=== PATIENT | male | born 1955 | race Two or more races ===

== ENCOUNTER 2023-11-11 03:37 | Inpatient (IN) | payer MEDICARE ==
[~2023-11-11] VITALS: Ht 172.7 cm; Wt 89.1 kg
[~2023-11-11 03:37] MED LIST: ASPI81TA53 PO; ATOR10TA PO; CLOP75TA34 PO; HYDR-3964 PO; LOP25T PO
[2023-11-11] MEDS ORDERED: magnesium sulf-water 4G/100mL 100 ML IV PRN (04:55)
[2023-11-11] MEDS ORDERED: morphine 2 MG/ML inj. syringe IV PRN (04:55)
[2023-11-11] MEDS ORDERED: HYDROmorphone/PF 0.2 MG/ML SYRINGE IV PRN (04:55)
[2023-11-11] MEDS ORDERED: potassium Cl 40MEQ/1/2NS 520ml 520 ML IV PRN (04:55)
[2023-11-11] MEDS ORDERED: potassium Cl 20 mEq SR tablet PO PRN ×2 (04:55)
[2023-11-11] MEDS ORDERED: magnesium Cl slow-release 64mg tablet PO PRN (04:55)
[2023-11-11] MEDS ORDERED: magnesium sulf-water 2g/50mL 50 ML IV PRN (04:55)
[2023-11-11] MEDS ORDERED: acetaminophen 325mg tablet PO PRN (04:55)
[2023-11-11] MEDS ORDERED: magnesium hydroxide 30ml (MOM) UD suspension PO PRN (04:55)
[2023-11-11] MEDS ORDERED: ondansetron/PF 4mg/2ml inj IV PRN (04:55)
[2023-11-11] MEDS ORDERED: mag hydrox/Alum hydrox/simeth 30ml oral suspension PO PRN (04:55)
[2023-11-11 04:56] LABS: ALANINE AMINOTRANSFERASE 43 U/L (12-78); ALBUMIN 1.8 G/DL (3.4-5.0); ALBUMIN/GLOBULIN RATIO 0.5 (1.1-1.5); ALKALINE PHOSPHATASE 72 IU/L (46-116); ANION GAP 12 (8-16); ASPARTATE AMINO TRANSFERASE 31 U/L (10-37); BILIRUBIN,TOTAL 0.3 MG/DL (0.1-1.0); BLOOD UREA NITROGEN 12 MG/DL (7-18); BUN/CREATININE RATIO 11.9 (10.0-20.0); CALCIUM 6.4 MG/DL (8.5-10.1); CHLORIDE 108 MMOL/L (99-107); CREATININE 1.01 MG/DL (0.60-1.10); GLUCOSE 100 MG/DL (70-104); SODIUM 140 MMOL/L (135-145); TOTAL PROTEIN 5.1 G/DL (6.4-8.2); eCRCL 69 ML/MIN; eGFR 74 ML/MIN
[2023-11-11 05:03] LABS: POTASSIUM 2.9 MMOL/L (3.5-5.1)
[2023-11-11] MEDS ORDERED: potassium chloride 8mEq ER tablet PO SCH (05:10)
[2023-11-11] MEDS ORDERED: potassium Cl 20 mEq SR tablet PO SCH (05:19)
[2023-11-11] MEDS: normal saline 1000ml 1,000 ML IV SCH (06:03)
[2023-11-11] MEDS: magnesium sulf-water 2g/50mL 50 ML IV ONE (06:03)
[2023-11-11] MEDS: potassium Cl 20 mEq SR tablet PO ONE (06:10)
[2023-11-11] MEDS: heparin 10,000 units/1 ML INJ IV ONE (06:39)
[2023-11-11 06:44] LABS: BASOPHILS # (AUTO) 0.1 X10'3 (0-0.2); BASOPHILS % (AUTO) 0.4 % (0-1); EOSINOPHILS % (AUTO) 0.2 % (0-6); HEMATOCRIT 24.3 % (42.0-52.0); LYMPHOCYTES # (AUTO) 0.8 X10'3 (1.1-4.8); LYMPHOCYTES % (AUTO) 6.2 % (21-51); MEAN CORPUSCULAR HEMOGLOBIN 29.1 PG (27.0-31.0); MEAN CORPUSCULAR HGB CONC 32.9 g/dL (33.0-36.5); MEAN CORPUSCULAR VOLUME 88.6 FL (78-98); MEAN PLATELET VOLUME 7.2 FL (7.4-10.4); MONOCYTES # (AUTO) 0.9 X10'3 (0-0.9); MONOCYTES % (AUTO) 7.4 % (2-12); NEUTROPHILS # (AUTO) 10.7 X10'3 (1.8-7.7); NEUTROPHILS % (AUTO) 85.8 % (42-75); PLATELET COUNT 222 X10'3 (140-440); RED BLOOD COUNT 2.74 X10'6 (4.70-6.10); RED CELL DISTRIBUTION WIDTH 13.1 % (11.5-14.5); WHITE BLOOD COUNT 12.5 X10'3 (4.5-11.0)
[2023-11-11] MEDS: MESSAGE TO NURSING IV ONE ×4 (06:51→22:58)
[2023-11-11] MEDS: heparin 25,000 UNIT/250ml bag 250 ML IV PRN (06:51)
[2023-11-11 06:53] LABS: INR 1.2 INR; PROTHROMBIN TIME 12.8 SECONDS (9.0-12.0)
[2023-11-11 07:05] LABS: BILIRUBIN,URINE NEGATIVE (Neg); CLARITY,URINE CLEAR (Clear); COLOR,URINE YELLOW (Yellow); GLUCOSE, URINE NEGATIVE (Neg); KETONES,URINE NEGATIVE (Neg); LEUKOCYTE ESTERASE ,URINE NEGATIVE (Neg); NITRITES, URINE NEGATIVE (Neg); OCCULT BLOOD,URINE SMALL (Neg); PROTEIN,URINE NEGATIVE (Neg); UROBILINOGEN,URINE 0.2 E.U/dL (0.2-1.0)
[2023-11-11 07:11] LABS: UA COLLECTION TYPE URINAL
[2023-11-11 07:12] LABS: BACTERIA,URINE NONE SEEN /HPF (Neg); RBC,URINE 0-2 /HPF (0-2); SQUAMOUS EPITHELIAL CELL,UR FEW /LPF (FEW); WBC,URINE 0-4 /HPF (0-4)
[2023-11-11 07:52] LABS: C-REACTIVE PROTEIN 24.09 MG/DL (0.0-0.5); MAGNESIUM 2.4 MG/DL (1.5-2.4)
[2023-11-11] MEDS: K and/or MAG REPLACEMENT MC SCH (08:00)
[2023-11-11] MEDS: docusate sod 100mg capsule PO SCH (08:00)
[2023-11-11] MEDS: PERFLUTREN PROTEIN-A MICROSPHR (Optison) 0.22 MG/ML 3ML VIAL IV ONE (08:10)
[2023-11-11 12:45] VITALS: RESP 14; O2SAT 98
[2023-11-11 15:00] VITALS: BP 119/65; PULSE 85; RESP 14; TEMP 97.9; O2SAT 98
[2023-11-11] MEDS: heparin 10,000 units/1 ML INJ IV PRN (15:22)
[2023-11-11 18:00] VITALS: BP 113/69; PULSE 84; RESP 18; TEMP 98; O2SAT 99
[2023-11-11 19:18] LABS: HEMATOCRIT 28.4 % (42.0-52.0); HEMOGLOBIN 9.4 g/dl (14.0-17.9); MEAN CORPUSCULAR HEMOGLOBIN 29.3 PG (27.0-31.0); MEAN CORPUSCULAR HGB CONC 33.2 g/dL (33.0-36.5); MEAN CORPUSCULAR VOLUME 88.4 FL (78-98); MEAN PLATELET VOLUME 6.9 FL (7.4-10.4); PLATELET COUNT 274 X10'3 (140-440); RED BLOOD COUNT 3.21 X10'6 (4.70-6.10); RED CELL DISTRIBUTION WIDTH 13.2 % (11.5-14.5); WHITE BLOOD COUNT 13.2 X10'3 (4.5-11.0)
[2023-11-11 20:00] VITALS: RESP 20; O2SAT 96
[2023-11-12] VITALS (10 sets, daily range): BP systolic 110–174; BP diastolic 63–85; PULSE 76–95; RESP 15–22; TEMP 97.4–99.3; O2SAT 90–100
[2023-11-12] MEDS ORDERED: MESSAGE TO NURSING IV ONE (04:45)
[2023-11-12 05:43] LABS: BASOPHILS # (AUTO) 0.1 X10'3 (0-0.2); BASOPHILS % (AUTO) 0.6 % (0-1); EOSINOPHILS # (AUTO) 0.2 X10'3 (0-0.9); EOSINOPHILS % (AUTO) 1.6 % (0-6); HEMOGLOBIN 9.4 g/dl (14.0-17.9); LYMPHOCYTES # (AUTO) 1.5 X10'3 (1.1-4.8); LYMPHOCYTES % (AUTO) 12.8 % (21-51); MEAN CORPUSCULAR HEMOGLOBIN 29.8 PG (27.0-31.0); MEAN CORPUSCULAR HGB CONC 33.6 g/dL (33.0-36.5); MEAN CORPUSCULAR VOLUME 88.6 FL (78-98); MEAN PLATELET VOLUME 7.1 FL (7.4-10.4); MONOCYTES # (AUTO) 0.9 X10'3 (0-0.9); MONOCYTES % (AUTO) 7.8 % (2-12); NEUTROPHILS # (AUTO) 8.9 X10'3 (1.8-7.7); NEUTROPHILS % (AUTO) 77.2 % (42-75); PLATELET COUNT 249 X10'3 (140-440); RED BLOOD COUNT 3.17 X10'6 (4.70-6.10); RED CELL DISTRIBUTION WIDTH 13.3 % (11.5-14.5); WHITE BLOOD COUNT 11.5 X10'3 (4.5-11.0)
[2023-11-12 05:56] LABS: ALANINE AMINOTRANSFERASE 52 U/L (12-78); ALBUMIN/GLOBULIN RATIO 0.5 (1.1-1.5); ALKALINE PHOSPHATASE 97 IU/L (46-116); ANION GAP 5 (8-16); ASPARTATE AMINO TRANSFERASE 47 U/L (10-37); BILIRUBIN,TOTAL 0.4 MG/DL (0.1-1.0); BLOOD UREA NITROGEN 17 MG/DL (7-18); BUN/CREATININE RATIO 14.4 (10.0-20.0); CALCIUM 7.7 MG/DL (8.5-10.1); CHLORIDE 103 MMOL/L (99-107); CHOL/HDL RATIO 3.3 (0.00-4.99); CHOLESTEROL 113 MG/DL (0-200); CREATININE 1.18 MG/DL (0.60-1.10); GLUCOSE 110 MG/DL (70-104); HDL CHOLESTEROL 34 MG/DL (35-60); LDL CHOLESTEROL 61 MG/DL (50-100); MAGNESIUM 2.2 MG/DL (1.5-2.4); SODIUM 133 MMOL/L (135-145); TOTAL PROTEIN 6.1 G/DL (6.4-8.2); TRIGLYCERIDES 97 MG/DL (20-135); eCRCL 59 ML/MIN; eGFR 62 ML/MIN
[2023-11-12 06:00] LABS: POTASSIUM 4.9 MMOL/L (3.5-5.1)
[2023-11-12] MEDS: MESSAGE TO NURSING IV ONE ×3 (07:23→22:20)
[2023-11-12] MEDS: metoclopramide 5 mg/ml inj IV PRN (11:02)
[2023-11-12] MEDS: baclofen 10mg tablet PO PRN (21:33)
[2023-11-12] MEDS: hydrALAZINE 20mg/ml inj. IV PRN (21:33)
[2023-11-12] MEDS: CefTRIAXone 2gm/D5W 50ml BAG 50 ML IV ONE (23:42)
[2023-11-13] VITALS (15 sets, daily range): BP systolic 142–185; BP diastolic 54–89; PULSE 73–91; RESP 10–24; TEMP 97.1–98; O2SAT 95–100
[2023-11-13 05:31] LABS: BASOPHILS % (AUTO) 0.6 % (0-1); EOSINOPHILS # (AUTO) 0.3 X10'3 (0-0.9); EOSINOPHILS % (AUTO) 3.6 % (0-6); HEMATOCRIT 27.8 % (42.0-52.0); HEMOGLOBIN 9.3 g/dl (14.0-17.9); LYMPHOCYTES # (AUTO) 1.2 X10'3 (1.1-4.8); MEAN CORPUSCULAR HEMOGLOBIN 29.4 PG (27.0-31.0); MEAN CORPUSCULAR HGB CONC 33.3 g/dL (33.0-36.5); MEAN CORPUSCULAR VOLUME 88.1 FL (78-98); MEAN PLATELET VOLUME 6.8 FL (7.4-10.4); MONOCYTES # (AUTO) 0.8 X10'3 (0-0.9); NEUTROPHILS # (AUTO) 5.3 X10'3 (1.8-7.7); NEUTROPHILS % (AUTO) 69.8 % (42-75); PLATELET COUNT 193 X10'3 (140-440); RED BLOOD COUNT 3.15 X10'6 (4.70-6.10); RED CELL DISTRIBUTION WIDTH 13.7 % (11.5-14.5); WHITE BLOOD COUNT 7.6 X10'3 (4.5-11.0)
[2023-11-13 06:01] LABS: ALANINE AMINOTRANSFERASE 51 U/L (12-78); ALBUMIN 1.9 G/DL (3.4-5.0); ALBUMIN/GLOBULIN RATIO 0.5 (1.1-1.5); ALKALINE PHOSPHATASE 99 IU/L (46-116); ANION GAP 10 (8-16); ASPARTATE AMINO TRANSFERASE 40 U/L (10-37); BILIRUBIN,TOTAL 0.3 MG/DL (0.1-1.0); BLOOD UREA NITROGEN 16 MG/DL (7-18); BUN/CREATININE RATIO 13.1 (10.0-20.0); CHLORIDE 101 MMOL/L (99-107); CREATININE 1.22 MG/DL (0.60-1.10); FERRITIN 554 NG/ML (26-388); GLUCOSE 102 MG/DL (70-104); MAGNESIUM 2.1 MG/DL (1.5-2.4); POTASSIUM 4.2 MMOL/L (3.5-5.1); SODIUM 134 MMOL/L (135-145); TOTAL CARBON DIOXIDE 22.9 MMOL/L (24-32); eCRCL 57 ML/MIN; eGFR 59 ML/MIN
[2023-11-13] MEDS: MESSAGE TO NURSING IV ONE ×3 (06:52→16:44)
[2023-11-13 07:31] LABS: % IRON SATURATION 10 % (11-46); IRON 18 UG/DL (53-167); TOTAL IRON BINDING CAPACITY 189 UG/DL (259-388)
[2023-11-13] MEDS: aspirin 81mg tab.chew PO SCH (10:44)
[2023-11-13 11:15] LABS: ANTI-DSDNA ANTIBODIES 1 IU/mL (0-9)
[2023-11-13] MEDS: HYDROcodone/acetaminophen 10/325mg tab PO PRN (11:22)
[2023-11-13] MEDS ORDERED: iohexol 350MG/ML 100ml bottle IV ONE (15:21)
[2023-11-13] MEDS ORDERED: iohexol 350 MG/ML 50ML vial IV ONE (15:21)
[2023-11-13] MEDS ORDERED: heparin 10,000 units/1 ML INJ IV PRN (15:30)
[2023-11-13] MEDS: heparin 10,000 units/1 ML INJ IV ONE (15:30)
[2023-11-13] MEDS ORDERED: proCHLORperazine 10 MG/2 ml inj IV PRN (16:45)
[2023-11-13] MEDS ORDERED: enalaprilat dihydrate 2.5mg/2ml vial IV PRN (16:45)
[2023-11-13] MEDS ORDERED: morphine 2 MG/ML inj. syringe IV PRN (16:45)
[2023-11-13] MEDS ORDERED: meperidine/PF 25mg/ml syringe IV PRN ×3 (16:45)
[2023-11-13] MEDS ORDERED: morphine 4 MG/ML inj SYRINge IV PRN (16:45)
[2023-11-13] MEDS ORDERED: ondansetron/PF 4mg/2ml inj IV PRN (16:45)
[2023-11-13] MEDS: ringers solution, lacted 1,000 ML IV SCH (16:45)
[2023-11-13] MEDS: gentamicin 40 MG/1 ML inj ONE (16:47)
[2023-11-13] MEDS: iohexol 300 MG/1 ML 50ml polymer ONE (16:48)
[2023-11-13] MEDS ORDERED: midazolam 1 mg/ML 2ml injection ONE (16:59)
[2023-11-13] MEDS ORDERED: fentaNYL /PF 50mcg/ml 5ml ampule ONE (17:00)
[2023-11-13] MEDS ORDERED: LIDOcaine 2% (20mg/ml) 5ml vial ONE (17:02)
[2023-11-13] MEDS ORDERED: propofol inj 20 ML IV ONE (17:02)
[2023-11-13] MEDS ORDERED: sevoflurane 250ml liquid IH ONE (17:20)
[2023-11-13] MEDS ORDERED: rocuronium 10mg/ml inj IV ONE (17:57)
[2023-11-13] MEDS ORDERED: ePHEDrine 50MG/ML INJ. ONE (18:02)
[2023-11-13] MEDS ORDERED: ceFAZolin 1000mg inj ONE ×2 (18:03)
[2023-11-13] MEDS ORDERED: heparin 1,000unit/ml 10ml vial 10 ML ONE (18:42)
[2023-11-13] MEDS ORDERED: albumin (Human) 5% 250ml 250 ML IV ONE (19:17)
[2023-11-13] MEDS ORDERED: naloxone 0.4 mg/ml inj IV PRN (19:55)
[2023-11-13] MEDS ORDERED: HYDROcodone/acetaminophen 10/325mg tab PO PRN (19:55)
[2023-11-13] MEDS: labetalol 20mg/4ml (5mg/ml) syringe IV PRN (20:16)
[2023-11-13] MEDS: CefTRIAXone 2gm/D5W 50ml BAG 50 ML IV SCH (21:21)
[2023-11-13] MEDS: potassium CL 20mEq in D5-1/2NS 1,000 ML IV SCH (21:21)
[2023-11-14] VITALS (18 sets, daily range): BP systolic 128–174; BP diastolic 49–111; PULSE 67–104; RESP 13–20; TEMP 97.5–97.9; O2SAT 95–100
[2023-11-14] MEDS ORDERED: ceFAZolin inj. 1,000 MG in dextrose 5%-water 50ml 50 ML IV SCH
[2023-11-14 00:36] LABS: BASOPHILS % (AUTO) 0.4 % (0-1); EOSINOPHILS % (AUTO) 0.2 % (0-6); HEMATOCRIT 27.9 % (42.0-52.0); HEMOGLOBIN 9.4 g/dl (14.0-17.9); LYMPHOCYTES # (AUTO) 0.5 X10'3 (1.1-4.8); LYMPHOCYTES % (AUTO) 6.7 % (21-51); MEAN CORPUSCULAR HEMOGLOBIN 29.5 PG (27.0-31.0); MEAN CORPUSCULAR HGB CONC 33.7 g/dL (33.0-36.5); MEAN CORPUSCULAR VOLUME 87.5 FL (78-98); MEAN PLATELET VOLUME 7.2 FL (7.4-10.4); MONOCYTES # (AUTO) 0.2 X10'3 (0-0.9); MONOCYTES % (AUTO) 2.9 % (2-12); NEUTROPHILS # (AUTO) 6.7 X10'3 (1.8-7.7); NEUTROPHILS % (AUTO) 89.8 % (42-75); PLATELET COUNT 160 X10'3 (140-440); RED BLOOD COUNT 3.19 X10'6 (4.70-6.10); RED CELL DISTRIBUTION WIDTH 13.5 % (11.5-14.5); WHITE BLOOD COUNT 7.5 X10'3 (4.5-11.0)
[2023-11-14 00:51] LABS: ALANINE AMINOTRANSFERASE 40 U/L (12-78); ALBUMIN 1.9 G/DL (3.4-5.0); ALBUMIN/GLOBULIN RATIO 0.5 (1.1-1.5); ALKALINE PHOSPHATASE 90 IU/L (46-116); ANION GAP 7 (8-16); ASPARTATE AMINO TRANSFERASE 31 U/L (10-37); BILIRUBIN,TOTAL 0.2 MG/DL (0.1-1.0); BLOOD UREA NITROGEN 14 MG/DL (7-18); BUN/CREATININE RATIO 12.4 (10.0-20.0); CALCIUM 7.7 MG/DL (8.5-10.1); CHLORIDE 102 MMOL/L (99-107); CREATININE 1.13 MG/DL (0.60-1.10); GLUCOSE 196 MG/DL (70-104); MAGNESIUM 1.9 MG/DL (1.5-2.4); POTASSIUM 4.7 MMOL/L (3.5-5.1); SODIUM 131 MMOL/L (135-145); TOTAL CARBON DIOXIDE 22.5 MMOL/L (24-32); TOTAL PROTEIN 5.6 G/DL (6.4-8.2); eCRCL 61 ML/MIN; eGFR 65 ML/MIN
[2023-11-14 01:03] LABS: APTT 96 SECONDS (22-32)
[2023-11-14] MEDS: dextrose 5%-1/2 normal saline 1,000 ML IV SCH (01:22)
[2023-11-14 07:11] LABS: APTT 103 SECONDS (22-32)
[2023-11-14] MEDS ORDERED: ASPI-611 PO (10:10)
[2023-11-14] MEDS ORDERED: ENAL-78 PO (10:10)
[2023-11-14] MEDS: apixaban 5mg tablet PO SCH (10:19)
[2023-11-14] MEDS: heparin 25,000 UNIT/250ml bag 250 ML IV PRN (12:23)
[2023-11-15] VITALS (7 sets, daily range): BP systolic 103–158; BP diastolic 54–86; PULSE 50–89; RESP 14–18; TEMP 97.9–99.6; O2SAT 97–100
[2023-11-15] MEDS: Melatonin 3mg tablet PO SCH (02:06)
[2023-11-15 06:28] LABS: BASOPHILS % (AUTO) 0.2 % (0-1); EOSINOPHILS # (AUTO) 0.1 X10'3 (0-0.9); EOSINOPHILS % (AUTO) 1.5 % (0-6); HEMOGLOBIN 8.8 g/dl (14.0-17.9); LYMPHOCYTES # (AUTO) 1.6 X10'3 (1.1-4.8); LYMPHOCYTES % (AUTO) 15.6 % (21-51); MEAN CORPUSCULAR HEMOGLOBIN 29.8 PG (27.0-31.0); MEAN CORPUSCULAR HGB CONC 33.8 g/dL (33.0-36.5); MEAN CORPUSCULAR VOLUME 88.2 FL (78-98); MEAN PLATELET VOLUME 7.2 FL (7.4-10.4); MONOCYTES # (AUTO) 0.8 X10'3 (0-0.9); MONOCYTES % (AUTO) 7.9 % (2-12); NEUTROPHILS # (AUTO) 7.6 X10'3 (1.8-7.7); NEUTROPHILS % (AUTO) 74.8 % (42-75); PLATELET COUNT 191 X10'3 (140-440); RED BLOOD COUNT 2.94 X10'6 (4.70-6.10); RED CELL DISTRIBUTION WIDTH 13.4 % (11.5-14.5); WHITE BLOOD COUNT 10.1 X10'3 (4.5-11.0)
[2023-11-15 06:51] LABS: ALANINE AMINOTRANSFERASE 46 U/L (12-78); ALBUMIN 1.9 G/DL (3.4-5.0); ALBUMIN/GLOBULIN RATIO 0.5 (1.1-1.5); ALKALINE PHOSPHATASE 88 IU/L (46-116); ANION GAP 8 (8-16); ASPARTATE AMINO TRANSFERASE 37 U/L (10-37); BILIRUBIN,TOTAL 0.2 MG/DL (0.1-1.0); BLOOD UREA NITROGEN 19 MG/DL (7-18); BUN/CREATININE RATIO 15.1 (10.0-20.0); CALCIUM 7.7 MG/DL (8.5-10.1); CHLORIDE 103 MMOL/L (99-107); CREATININE 1.26 MG/DL (0.60-1.10); GLUCOSE 102 MG/DL (70-104); MAGNESIUM 1.9 MG/DL (1.5-2.4); POTASSIUM 4.1 MMOL/L (3.5-5.1); SODIUM 136 MMOL/L (135-145); TOTAL CARBON DIOXIDE 25.3 MMOL/L (24-32); TOTAL PROTEIN 5.5 G/DL (6.4-8.2); eCRCL 55 ML/MIN; eGFR 57 ML/MIN
[2023-11-15] MEDS: ondansetron/PF 4mg/2ml inj IV PRN (20:51)
[2023-11-16 02:00] VITALS: BP 136/58; PULSE 80; RESP 14; TEMP 97.5; O2SAT 99
[2023-11-16 05:11] LABS: PROTEIN S, FREE 96 % (61-136); PROTEIN S, TOTAL 134 % (60-150)
[2023-11-16 06:56] LABS: BASOPHILS # (AUTO) 0.1 X10'3 (0-0.2); BASOPHILS % (AUTO) 0.7 % (0-1); EOSINOPHILS # (AUTO) 0.3 X10'3 (0-0.9); EOSINOPHILS % (AUTO) 3.4 % (0-6); HEMATOCRIT 26.3 % (42.0-52.0); HEMOGLOBIN 8.9 g/dl (14.0-17.9); LYMPHOCYTES # (AUTO) 1.7 X10'3 (1.1-4.8); LYMPHOCYTES % (AUTO) 18.7 % (21-51); MEAN CORPUSCULAR HEMOGLOBIN 29.7 PG (27.0-31.0); MEAN CORPUSCULAR HGB CONC 33.8 g/dL (33.0-36.5); MEAN CORPUSCULAR VOLUME 87.8 FL (78-98); MEAN PLATELET VOLUME 6.9 FL (7.4-10.4); MONOCYTES # (AUTO) 0.8 X10'3 (0-0.9); MONOCYTES % (AUTO) 8.9 % (2-12); NEUTROPHILS # (AUTO) 6.1 X10'3 (1.8-7.7); NEUTROPHILS % (AUTO) 68.3 % (42-75); PLATELET COUNT 236 X10'3 (140-440); RED BLOOD COUNT 2.99 X10'6 (4.70-6.10); RED CELL DISTRIBUTION WIDTH 13.6 % (11.5-14.5)
[2023-11-16 07:00] VITALS: BP 130/65; PULSE 50; RESP 16; TEMP 97.6; O2SAT 99
[2023-11-16 07:18] LABS: ALANINE AMINOTRANSFERASE 57 U/L (12-78); ALBUMIN/GLOBULIN RATIO 0.5 (1.1-1.5); ALKALINE PHOSPHATASE 100 IU/L (46-116); ANION GAP 6 (8-16); ASPARTATE AMINO TRANSFERASE 37 U/L (10-37); BILIRUBIN,TOTAL 0.2 MG/DL (0.1-1.0); BLOOD UREA NITROGEN 19 MG/DL (7-18); BUN/CREATININE RATIO 15.8 (10.0-20.0); CALCIUM 8.1 MG/DL (8.5-10.1); CHLORIDE 102 MMOL/L (99-107); GLUCOSE 100 MG/DL (70-104); POTASSIUM 4.1 MMOL/L (3.5-5.1); SODIUM 135 MMOL/L (135-145); TOTAL CARBON DIOXIDE 27.2 MMOL/L (24-32); TOTAL PROTEIN 5.8 G/DL (6.4-8.2); eCRCL 58 ML/MIN; eGFR 60 ML/MIN
[2023-11-16 07:38] LABS: TOTAL CELLS COUNTED 100
[2023-11-16 07:39] LABS: PLATELET ESTIMATE NORMAL
[2023-11-16 07:40] LABS: BURR CELLS FEW; POLYCHROMASIA 1+
[2023-11-16 11:00] VITALS: BP 136/82; PULSE 52; RESP 18; TEMP 98; O2SAT 99
[2023-11-16] MEDS ORDERED: ATOR20TA66 PO (15:26)
[2023-11-16] MEDS ORDERED: APIX5TAB3 PO (15:26)
[2023-11-16] MEDS ORDERED: FERR324T4 PO (17:44)
[2023-11-16] MEDS: JUVEN Smoothie Arginine/Glut./Ca2+Bmb (Juven 19.3pkt) 240ml cup PO SCH (17:53)
[2023-11-17 05:09] LABS: ANTITHROMBIN ACTIVITY 107 % (75-135); ANTITHROMBIN ANTIGEN 99 % (72-124)
== END 2023-11-16 18:40 | disposition home or self-care (01) | DRG 270 ==
LOC: ER 03:38 → ED HOLD 05:11 → PCU 3S 13:04 → CICU 2S 11-13 19:38 → PCU 3S 11-14 16:31
PROVIDERS: ADMIT Internal Medicine Sleep Medicine; ATTEND Family Medicine
PROC: 04CK3ZZ Extirpation of Matter from Right Femoral Artery, Percutaneous Approach (ICD-10-PCS; 2023-11-13)
PROC: B4201ZZ Computerized Tomography (CT Scan) of Abdominal Aorta using Low Osmolar Contrast (ICD-10-PCS; 2023-11-13)
PROC: B4241ZZ Computerized Tomography (CT Scan) of Superior Mesenteric Artery using Low Osmolar Contrast (ICD-10-PCS; 2023-11-13)
PROC: B4281ZZ Computerized Tomography (CT Scan) of Bilateral Renal Arteries using Low Osmolar Contrast (ICD-10-PCS; 2023-11-13)
PROC: B42C1ZZ Computerized Tomography (CT Scan) of Pelvic Arteries using Low Osmolar Contrast (ICD-10-PCS; 2023-11-13)
PROC: B42H1ZZ Computerized Tomography (CT Scan) of Bilateral Lower Extremity Arteries using Low Osmolar Contrast (ICD-10-PCS; 2023-11-13)
PROC: B4211ZZ Computerized Tomography (CT Scan) of Celiac Artery using Low Osmolar Contrast (ICD-10-PCS; 2023-11-13)
PROC: B42H1ZZ Computerized Tomography (CT Scan) of Bilateral Lower Extremity Arteries using Low Osmolar Contrast (ICD-10-PCS; 2023-11-13)
PROC: 04CC3ZZ Extirpation of Matter from Right Common Iliac Artery, Percutaneous Approach (ICD-10-PCS; principal; 2023-11-13 17:20)
DX: I82.421 Acute embolism and thrombosis of right iliac vein (principal); I21.A1 Myocardial infarction type 2; N10 Acute pyelonephritis; E87.1 Hypo-osmolality and hyponatremia; I10 Essential (primary) hypertension; F17.210 Nicotine dependence, cigarettes, uncomplicated; I25.10 Atherosclerotic heart disease of native coronary artery without angina pectoris; D64.9 Anemia, unspecified; M54.9 Dorsalgia, unspecified; R74.01 Elevation of levels of liver transaminase levels; I73.9 Peripheral vascular disease, unspecified; E87.6 Hypokalemia; Z79.82 Long term (current) use of aspirin; I25.2 Old myocardial infarction; Z79.899 Other long term (current) drug therapy; Z95.1 Presence of aortocoronary bypass graft; Z79.01 Long term (current) use of anticoagulants
CPT/HCPCS: 36415; 71045; 74176; 75635; 80053; 80061; 81001; 81479; 82728; 82948; 83540; 83550; 83605; 83735; 83880; 83891; 83894; 83898; 84132; 84145; 84466; 84484; 85007; 85025; 85027; 85300; 85301; 85303; 85305; 85306; 85610; 85730; 86022; 86140; 86146; 86147; 86885; 86900; 86901; 86920; 87040; 87081; 93005; 93306; 93926; 93971; 93975; 97116; 97161; 99285; A4615; A4618; A6258; A7000; C1758; G0378; J0360; J0690; J0696; J1100; J1580; J1644; J2250; J2405; J2704; J2710; J2765; J3010; J3480; J3490; J7030; J7040; J7120; P9045; Q9967